=== PATIENT | female | born 1955 | race Caucasian/White ===

== ENCOUNTER 2019-05-15 20:03 | Emergency (ER) | payer OTHER, SELFPAY ==
[2019-05-15 20:07] VITALS: BP 165/90; PULSE 88; RESP 14; TEMP 37.6; O2SAT 99
--- NOTE | 2019-05-15 20:15 | DI.RAD.S_ITS ---
PROCEDURE: XR CHEST 2V INDICATIONS: from ED WR. cough and fever. TECHNIQUE: 2 views of the chest were acquired. COMPARISON: [facility], , CHEST 1 VIEW, 09/08/2016, 19:39. FINDINGS: Surgical changes and devices: None. Lungs and pleura: Retrocardiac alveolar opacity seen on the lateral view. No associated effusion. No pneumothorax. Mediastinum: Mediastinal contours are normal. Heart size is normal. Bones and chest wall: No suspicious bony abnormalities. Moderate thoracolumbar S-shaped scoliosis. Soft tissues appear unremarkable. IMPRESSION: Retrocardiac alveolar opacity best seen on the lateral view. This suggests a pneumonia. Dictated by: Mag العلي M.D. on 05/15/2019 at 21:26 Approved by: Mag العلي M.D. on 05/15/2019 at 21:27
[2019-05-15 20:55] LABS: Influenza A - CEPHEID Flu A NEGATIVE (NEGATIVE); Influenza B - CEPHEID Flu B NEGATIVE (NEGATIVE)
--- NOTE | 2019-05-15 21:48 | ED_ITS ---
HPI - URI/Sore Throat General Chief Complaint: Upper Respiratory Symptoms Stated Complaint: Cough, Blood Pressure up and down Time Seen by Provider: 05/15/19 20:57 Source: patient Mode of arrival: Ambulatory Limitations: no limitations History of Present Illness HPI Narrative: 63-year-old female nonsmoker with noncontributory medical history presents with her and a chief complaint of 8 days of gradually worsening cough, occasional sputum, fatigue and low-grade fever. She denies any nausea or vomiting nor any dysuria, frequency or urgency. She has no constipation or diarrhea. She denies any significant or profound shortness of breath. has similar symptoms MD Complaint: fever and cough Onset (ago): day(s) Duration: constant Severity: moderate Relieving factors: nothing Exacerbating factors: nothing Description of mucous: yellow Able to tolerate fluids by mouth: Yes Context: sick contacts Associated symptoms: fever and cough Treatments prior to arrival: none Related Data Previous Rx's Medication Instructions Recorded tramadol 50 mg PO Q6HP PRN #10 tab 09/08/16 amoxicillin-pot clavulanate 1 tab PO BID #20 tab 05/15/19 [Augmentin] Allergies Allergy/AdvReac Type Severity Reaction Status Date / Time No Known Drug Allergies Allergy Verified 05/15/19 20:15 Review of Systems Constitutional Constitutional: Denies chills, Denies fatigue, Reports fever(s), Denies frequent falls, Denies lethargy and Denies weakness Eyes Eyes: Denies change in vision, Denies eye discharge, Denies irritation and Denies loss of vision ENT Ears, Nose, Mouth, and Throat: Denies change in voice, Denies dizziness, Denies neck pain, Denies sore throat and Denies throat swelling Cardiovascular Cardiovascular: Denies chest pain, Denies irregular heart rhythm, Denies lightheadedness, Denies palpitations, Denies dyspnea, Denies dyspnea on exertion and Denies orthopnea Respiratory Respiratory: Reports cough, Reports excessive phlegm production, Denies dyspnea, Denies dyspnea on exertion and Denies wheezing Gastrointestinal Gastrointestinal: Denies abdominal pain, Denies change in bowel habits, Denies diarrhea, Denies nausea and Denies vomiting Genitourinary Genitourinary: Denies hematuria, Denies flank pain, Denies urinary incontinence and Denies urinary urgency Musculoskeletal Musculoskeletal: Denies back pain, Denies muscle weakness, Denies neck pain, Denies numbness and Denies tingling Integumentary/Breasts Skin/Breast: Denies pruritus, Denies erythema, Denies rash and Denies wounds Neurologic Neurologic: Denies behavioral changes, Denies confusion, Denies dizziness, Denies frequent falls, Denies loss of vision, Denies numbness, Denies tingling and Denies weakness Psychiatric Psychiatric: Denies anxiety, Denies behavioral changes, Denies confusion, Denies depression, Denies homicidal ideation and Denies suicidal ideation Endocrine Endocrine: Denies fatigue, Denies flushing and Denies palpitations Hematologic/Lymphatic Hematologic/Lymphatic: Denies easy bruising Allergic/Immunologic Allergic/Immunologic: Denies urticaria, Denies throat swelling and Denies wheezing Patient History Social History Smoking Status: Never smoker Smoking Status: Never smoker alcohol intake frequency: 0-2 drinks per day Substance Use Type: does not use Exam Narrative Exam Narrative: GENERAL: [63] year old patient appears stated age. Well- nourished, well-developed patient, in mild distress. HEAD: Atraumatic. Normocephalic. EYES: Pupils equal round and reactive. Extraocular motions intact. No scleral icterus. No injection or drainage. ENT: Nose without bleeding, purulent drainage. Throat without erythema, tonsilla r hypertrophy or exudate. Airway patent. NECK: Trachea midline. Non tender CARDIOVASCULAR: Regular rate and rhythm without murmurs, gallops, or rubs. RESPIRATORY: Clear to auscultation. Breath sounds equal bilaterally. No wheezes, rales, or rhonchi. GASTROINTESTINAL: Abdomen soft, non-tender, nondistended. EXTREMITIES: No edema or joint tenderness. BACK: Nontender without deformity or crepitance. No flank tenderness. NEURO: AOx3. SKIN: No rash or erythema of visible areas Initial Vital Signs Initial Vital Signs: Vital Signs Temperature 99.7 F H 05/15/19 20:07 Pulse Rate 88 05/15/19 20:07 Respiratory Rate 14 05/15/19 20:07 Blood Pressure 165/90 H 05/15/19 20:07 Pulse Oximetry 99 05/15/19 20:07 Course Orders Ordered: ED Orders 05/15/19 20:14 Influenza A & B (PCR) Stat 05/15/19 20:15 Chest [XR chest 2V] Stat Discontinued Medications Amoxicillin/Clavulanate Potassium (Augmentin 875-125 Mg) 1 tab PO NOW ONE Stop: 05/15/19 22:03 Last Admin: 05/15/19 22:07 Dose: 1 tab Documented by: DAMION Vital Signs Vital signs: Vital Signs - 8 hr 05/15/19 20:07 05/15/19 21:53 Temperature 99.7 F H 99.0 F Pulse Rate 88 65 Respiratory Rate 14 18 Blood Pressure 165/90 H Blood Pressure [Right Arm] 124/73 Pulse Oximetry 99 98 MDM - URI/Sore Throat Lab Data Labs: Lab Results 05/15/19 Range/Units 20:14 Influenza A (RT-PCR) Flu a negative (NEGATIVE) Influenza B (RT-PCR) Flu b negative (NEGATIVE) Imaging Data Chest x-ray: Radiologist's Impression: [address] [address] XRay Report Signed Patient: Leilani Garzon KMR#: [id number] : 5Acct:[id number] Age/Sex: 63 / FDate of Service: 05/15/19 Loc: ED Accession Number: [id number] Procedure: XR chest 2V Ordering Provider: Harjit Wynn D.O. PROCEDURE: XR CHEST 2V INDICATIONS: from ED WR. cough and fever. TECHNIQUE: 2 views of the chest were acquired. COMPARISON: [facility], , CHEST 1 VIEW, 09/08/2016, 19:39. FINDINGS: Surgical changes and devices: None. Lungs and pleura: Retrocardiac alveolar opacity seen on the lateral view. No associated effusion. No pneumothorax. Mediastinum: Mediastinal contours are normal. Heart size is normal. Bones and chest wall: No suspicious bony abnormalities. Moderate thoracolumbar S-shaped scoliosis. Soft tissues appear unremarkable. IMPRESSION: Retrocardiac alveolar opacity best seen on the lateral view. This suggests a pneumonia. Dictated by: Mag العلي M.D. on 05/15/2019 at 21:26 Approved by: Mag العلي M.D. on 05/15/2019 at 21:27 [facility] Narrative Medical decision making narrative: 63-year-old female nonsmoker with reassuring vital signs and physical exam has cough with some sputum and low-grade fever for 8 days. She is otherwise doing quite well. Pneumonia and flu considered most likely diagnoses given history and physical. Flu swab negative, chest x-ray no cellular retrocardiac infiltrate. Discharge Plan Departure Patient Disposition: Home Clinical Impression: Pneumonia Qualifiers: Pneumonia type: due to unspecified organism Laterality: unspecified laterality Lung location: unspecified part of lung Qualified Code(s): J18.9 - Pneumonia, unspecified organism Discharge Date/Time: 05/15/19 22:17 Instructions: DI for Pneumonia -- Adult Activity Restrictions/Additional Instructions: *You have been diagnosed with [acute community-acquired pneumonia] *What to do: *Take medications as directed *Follow up with your primary care provider in 2-3 days, call for an appointment. Let them know you were seen in the Emergency Department and that we ask that you be seen in follow up *Return to ER if you should have any new, worsening or concerning symptoms Prescriptions: New amoxicillin-pot clavulanate [Augmentin] 875-125 mg tablet 1 tab PO BID Qty: 20 RF: 0 No Action tramadol 50 MG tablet 50 mg PO Q6HP PRNQty: 10 RF: 0
[2019-05-15 21:53] VITALS: BP 124/73; PULSE 65; RESP 18; TEMP 37.2; O2SAT 98
[2019-05-15] MEDS: AMOXICILLIN/CLAV 875/125 MG 1 TAB PO (22:07)
== END 2019-05-15 22:17 | disposition home or self-care (01) ==
PROVIDERS: Emergency Provider Emergency Medicine
DX: J18.9 Pneumonia, unspecified organism (principal)
CPT/HCPCS: 71046; 87502; 99283

== ENCOUNTER 2020-10-30 20:37 | Emergency (ER) | payer MEDICARE, OTHER, SELFPAY ==
[2020-10-30 20:47] VITALS: BP 180/85; PULSE 54; RESP 18; TEMP 36.8; O2SAT 98; BMI 30.1
--- NOTE | 2020-10-30 21:04 | DI.RAD.S_ITS ---
PROCEDURE: XR CHEST 1V INDICATIONS: chest pain TECHNIQUE: One view of the chest was acquired. COMPARISON: [facility], CR, XR CHEST 2V, 05/15/2019, 20:24. FINDINGS: Surgical changes and devices: None. Lungs and pleura: Lungs are clear. No pleural effusions or pneumothorax. Mediastinum: Mediastinal contours appear normal. Heart size is normal. Bones and chest wall: Moderate lower thoracic dextroscoliosis due to left-sided degenerative disc height loss. No suspicious bony lesions. Overlying soft tissues appear unremarkable. IMPRESSION: No acute cardiopulmonary disease. Dictated by: Mag العلي M.D. on 10/30/2020 at 21:48 Approved by: Mag العلي M.D. on 10/30/2020 at 21:48
[2020-10-30 21:11] LABS: Add Manual Diff / Slide Review NO; Basophils Absolute Auto 100 /uL (0-100); Basophils Percent Auto 0.8 % (0-2); Eosinophils Absolute Auto 200 /uL (0-450); Eosinophils Percent Auto 2.8 % (2-4); Hematocrit 39.8 % (36-46); Hemoglobin 13.3 g/dL (12.0-16.0); Lymphocytes Absolute Auto 2100 /uL (1100-4500); Lymphocytes Percent Auto 30.5 % (25-40); Mean Corpuscular HGB Conc 33.3 % (30-36); Mean Corpuscular Hemoglobin 29.4 PG (26-34); Mean Corpuscular Volume 88.3 fL (80-100); Monocytes Absolute Auto 700 /uL (0-900); Monocytes Percent Auto 9.3 % (3-14); Neutrophils Absolute Auto 4000 /uL (1500-7000); Neutrophils Percent Auto 56.6 % (50-75); Platelet Count 222 X10^3/uL (150-400); Red Blood Cell Count 4.51 X10^6/uL (4.0-5.2); Red Cell Distribution Width 12.7 % (11.6-14.8)
[2020-10-30 21:20] LABS: Alanine Aminotransferase 25 IU/L (<35); Albumin 4.4 g/dL (3.5-5.0); Albumin Globulin Ratio 1.6 (1.0-2.8); Alkaline Phosphatase 58 U/L (38-126); Aspartate Aminotransferase 28 IU/L (14-36); BUN Creatinine Ratio 24.2 (6-22); Bilirubin Total 0.8 mg/dL (0.2-1.3); Blood Urea Nitrogen 15 mg/dL (7-17); Calcium 9.3 mg/dL (8.4-10.2); Carbon Dioxide 25 mmol/L (22-32); Chloride 105 mmol/L (98-107); Creatine Kinase 137 U/L (30-135); Estimated Glomerular Filt Rate > 60.0 mL/min (>60); Globulin 2.8 g/dL (1.7-4.1); Glucose 100 mg/dL (80-110); HEMOLYSIS 19 (0-50); Lipase 121 U/L (23-300); Sodium 138 mmol/L (137-145); Total Protein 7.2 g/dL (6.3-8.2)
[2020-10-30 21:32] LABS: Troponin I < 0.012 ng/mL (0.01-0.034)
[2020-10-30 21:36] LABS: CKMB % Relative Index 1.4 % (1.5-5.0); Creatine Kinase MB 1.98 ng/mL (<2.37)
[2020-10-30 21:40] LABS: COVID19 -Nasal RAPID Negative (Negative)
[2020-10-30 22:05] VITALS: BP 154/85; PULSE 59; RESP 16; O2SAT 98
--- NOTE | 2020-10-30 23:33 | ED.CHESTPAIN ---
HPI - Chest Pain General Chief Complaint: Chest Pain Stated Complaint: lt shoulder and chest pain Time Seen by Provider: 10/30/20 20:40 Source: patient Mode of arrival: Ambulatory Limitations: no limitations History of Present Illness HPI narrative: 65-year-old woman with no significant known medical history presents with central chest pain radiating through to her back it has been intermittently present for the last week worse with deep breathing and movement and not worsened with activity. She has tried some Tylenol and tramadol and has not found either of these particularly effective. She does note that she and her have both been helping some neighbors move in with much more physical activity lifting boxes and moving furniture etc.. She describes no dyspnea, nausea or diaphoresis when she does experience the pain. She complains of no abdominal pain, vomiting, diarrhea, fevers or palpitations. Related Data Previous Rx's Medication Instructions Recorded tramadol 50 mg tablet 50 mg PO Q6HP PRN #10 tab 09/08/16 amoxicillin 875 mg-potassium 1 tab PO BID #20 tab 05/15/19 clavulanate 125 mg tablet (Augmentin) Allergies Allergy/AdvReac Type Severity Reaction Status Date / Time No Known Drug Allergies Allergy Verified 10/30/20 20:47 Review of Systems Review of Systems Narrative: Remainder of complete review of systems is otherwise unremarkable except for that included in the HPI. Patient History Social History Smoking Status: Never smoker Smoking Status: Never smoker alcohol intake frequency: 0-2 drinks per day Substance Use Type: does not use Exam Narrative Exam Narrative: General: Healthy appearing, in no acute distress. Able to give a complete and coherent history. Well-nourished well-developed HEENT: Moist mucous membranes, normal sclera with reactive pupils, Neck: No JVD, supple Respiratory: Lungs are clear to auscultation, no wheezing no rales no rhonchi. Full and symmetrical air movement Chest: No skin rashes or abnormalities. She does have some tenderness along costochondral margins with palpation that does reproduce her pain Cardiac: Regular rate and rhythm no murmurs no bruits Abdomen: Soft, nontender, good bowel tones, no flank pain Skin: Warm and dry, no rashes Neurologic: Grossly neurologically intact with no obvious asymmetries or abnormalities Extremities: No trauma, well perfused Psych: Cooperative, appropriate insight and affect Initial Vital Signs Initial Vital Signs: Vital Signs Temperature 98.2 F 10/30/20 20:47 Pulse Rate 54 L 10/30/20 20:47 Respiratory Rate 18 10/30/20 20:47 Blood Pressure 180/85 H 10/30/20 20:47 Pulse Oximetry 98 10/30/20 20:47 Course Orders Ordered: Discontinued Medications Ketorolac Tromethamine (Ketorolac 30 Mg/Ml Vial) 15 mg IV NOW ONE Stop: 10/30/20 23:42 Last Admin: 10/30/20 23:49 Dose: 15 mg Documented by: IZZY Vital Signs Vital signs: Vital Signs - 8 hr 10/30/20 20:47 Temperature 98.2 F Pulse Rate 54 L Respiratory Rate 18 Blood Pressure 180/85 H Pulse Oximetry 98 MDM - Chest Pain Lab Data Result diagrams: 10/30/20 20:55 10/30/20 20:55 Labs: Lab Results 10/30/20 10/30/20 10/30/20 Range/Units 20:55 20:55 20:58 WBC 7.0 (4.5-11.0) X10^3/uL RBC 4.51 (4.0-5.2) X10^6/uL Hgb 13.3 (12.0-16.0) g/dL Hct 39.8 (36-46) % MCV 88.3 (80-100) fL MCH 29.4 (26-34) PG MCHC 33.3 (30-36) % RDW 12.7 (11.6-14.8) % Plt Count 222 (150-400) X10^3/uL Neut % (Auto) 56.6 (50-75) % Lymph % (Auto) 30.5 (25-40) % [place] % (Auto) 9.3 (3-14) % Eos % (Auto) 2.8 (2-4) % Baso % (Auto) 0.8 (0-2) % Neut # (Auto) 4000 (4692-4322) /uL Lymph # (Auto) 2100 (9358-4727) /uL [place] # (Auto) 700 (0-900) /uL Eos # (Auto) 200 (0-450) /uL Baso # (Auto) 100 (0-100) /uL Sodium 138 (137-145) mmol/L Potassium 4.0 (3.4-5.1) mmol/L Chloride 105 (98-107) mmol/L Carbon Dioxide 25 (22-32) mmol/L BUN 15 (7-17) mg/dL Creatinine 0.62 (0.52-1.04) mg/dL Estimated GFR > 60.0 (>60) mL/min BUN/Creatinine Ratio 24.2 H (6-22) Glucose 100 (80-110) mg/dL Calcium 9.3 (8.4-10.2) mg/dL Total Bilirubin 0.8 (0.2-1.3) mg/dL AST 28 (14-36) IU/L ALT 25 (<35) IU/L Alkaline Phosphatase 58 (38-126) U/L Total Creatine Kinase 137 H (30-135) U/L CK-MB (CK-2) 1.98 (<2.37) ng/mL CK-MB (CK-2) Rel Index 1.4 L (1.5-5.0) % Troponin I < 0.012 (0.01-0.034) ng/mL Total Protein 7.2 (6.3-8.2) g/dL Albumin 4.4 (3.5-5.0) g/dL Globulin 2.8 (1.7-4.1) g/dL Albumin/Globulin Ratio 1.6 (1.0-2.8) Lipase 121 (23-300) U/L SARS-CoV-2 (PCR) Negative (Negative) Imaging Data Chest x-ray: Radiologist's Impression: FINDINGS: Surgical changes and devices: None. Lungs and pleura: Lungs are clear. No pleural effusions or pneumothorax. Mediastinum: Mediastinal contours appear normal. Heart size is normal. Bones and chest wall: Moderate lower thoracic dextroscoliosis due to left-sided degenerative disc height loss. No suspicious bony lesions. Overlying soft tissues appear unremarkable. IMPRESSION: No acute cardiopulmonary disease. Dictated by: Mag العلي M.D. on 10/30/2020 at 21:48 ECG Data Interpretation: Sinus bradycardia at a rate of 55 Left axis deviation, incomplete right bundle branch block No acute ischemic changes MDM Narrative Medical decision making narrative: 65-year-old woman with 1 week of intermittent chest pain. Tenderness with palpation of, along the costochondral margins and negative workup for acute coronary syndrome. Significantly improved with IV Toradol. At this time I do not suspect acute coronary syndrome, pneumothorax, shingles, gastric ulcer, pancreatitis or gallbladder disease. Reassurance is given and she is safe for discharge home Discharge Plan Departure Patient Disposition: Home Clinical Impression: Costalchondritis Instructions: DI for Costochondritis Activity Restrictions/Additional Instructions: Thank you for coming in this evening Your workup was very reassuring. There is no evidence of a heart attack, pneumonia, collapsed lung or broken ribs. With the increased activity that you had and the pain reproducible on your physical exam, I suspect that you have costochondritis. Ibuprofen or Aleve are the most appropriate [id number] medications to help treat this pain. It should resolve by itself within the next week or so. If you have new or worsening symptoms, please feel free to return to the emergency department I hope you feel better Prescriptions: No Action tramadol 50 MG tablet 50 mg PO Q6HP PRNQty: 10 RF: 0 amoxicillin-pot clavulanate [Augmentin] 875-125 mg tablet 1 tab PO BID Qty: 20 RF: 0
[2020-10-30 23:48] VITALS: BP 178/84; PULSE 56; RESP 18; O2SAT 98
[2020-10-30] MEDS: KETOROLAC 30 MG/ML VIAL 15 MG IV (23:49)
== END 2020-10-30 23:58 | disposition home or self-care (01) ==
PROVIDERS: Emergency Provider Emergency Medicine
DX: M94.0 Chondrocostal junction syndrome [Tietze] (principal); Z20.822 Contact with and (suspected) exposure to COVID-19
CPT/HCPCS: 36415; 71045; 80053; 82550; 82553; 83690; 84484; 85025; 87635; 93005; 96374; 99284; C9803; J1885

== ENCOUNTER → 2022-03-11 06:48 | Outpatient (CLI) | payer MEDICARE, OTHER, SELFPAY ==
--- NOTE | 2022-03-11 | DI.ECHO.S_ITS ---
[facility] +---------+ : : [address] : : : : [id number] : : : : Phone: [phone]---------+ Echocardiogram Report + + :Name: MAURICE DELONG Study Date: 03/11/2022 Height: 63 in : :[facility] ReadingLocation: Weight: 171 lb : : Gender: Female BSA: 1.8 m2 : :: 1955 Age: 66 yrs BP: 158/79 mmHg: :Reason For Study: Palpitations : :Ordering Physician: ISHMAEL, : :MAXWELL Performed By: Giovanny Pena : :Referring: MAXWELL QUIÑONES : + + Interpretation Summary The ejection fraction is estimated to be 60-65%. Grade II diastolic dysfunction. The right ventricle is normal in size and function. The right ventricular systolic pressure is estimated to be at least 27 mmHg based on an estimated right atrial pressure of 3 mm Hg. No significant valvular disease. Procedure: A two-dimensional transthoracic echocardiogram with color flow and Doppler was performed. The study quality was technically adequate. There is no prior echocardiogram noted for this patient. The patient was in normal sinus rhythm during the exam. Left Ventricle: The left ventricle is normal in size and wall thickness. Left ventricular systolic function is normal. The ejection fraction is estimated to be 60-65%. There are no focal wall motion abnormalities. Grade II diastolic dysfunction. Right Ventricle: The right ventricle is normal in size and function. Atria: The left atrium is mildly dilated. Right atrial size is normal. The interatrial septum grossly appears intact with no obvious evidence for an atrial septal defect. Mitral Valve: There is mild mitral annular calcification. There is trace mitral regurgitation. Aortic Valve: The aortic valve is mildly calcified. There is no hemodynamically significant valvular aortic stenosis. No aortic regurgitation is present. Tricuspid Valve: The tricuspid valve is normal in structure and function. There is mild tricuspid regurgitation. The right ventricular systolic pressure is estimated to be at least 27 mmHg based on an estimated right atrial pressure of 3 mm Hg. Pulmonic Valve: The pulmonic valve is normal in structure and function. There is trace pulmonic regurgitation. Great Vessels: The aortic root is normal size. The dimensions of the ascending aorta are normal. The IVC is of normal diameter and collapses greater than 50% with a sniff. This suggests a low right atrial pressure of 3 mm Hg. Pericardium/ Pleura There is no pericardial effusion. There is no pleural effusion. MMode/2D Measurements & Calculations LVIDd: 4.6 cm LVOT diam: 2.1 cm LVIDs: 3.0 cm Ao root diam: 3.0 cm FS: 36.3 % asc Aorta Diam: 3.5 cm IVSd: 0.80 cm LVPWd: 0.84 cm LV patel. diameter/BSA (cm/m^2): 2.6 LV sys. diameter/BSA (cm/m^2): 1.6 LA A2 area: 21.4 cm2 RA long axis: 5.0 cm LA A4 area: 21.0 cm2 RA area: 13.5 cm2 LA length (vol): 5.7 cm RA vol: 30.9 ml LA vol: 66.9 ml RA : 17.1 ml/m2 LA vol index: 37.0 ml/m2 TAPSE: 3.4 cm Doppler Measurements & Calculations Ao V2 max: 231.8 cm/sec LVOT Max Som: 125.5 cm/sec Ao V2 mean: 151.2 cm/sec LV V1 max P.3 mmHg Ao max P.5 mmHg LV V1 VTI: 29.9 cm Ao mean P.5 mmHg KENN(I,D): 2.1 cm2 Ao V2 VTI: 48.0 cm KENN(V,D): 1.8 cm2 sev ratio: 0.62 KENN indexed to BSA (cm^2/m^2): 1.1 MV E max som: 90.6 cm/sec TR max som: 242.7 cm/sec MV A max osm: 99.1 cm/sec TR max P.6 mmHg MV E/A: 0.91 Med Peak E' Som: 4.7 cm/sec E/E' med: 19.2 Lat Peak E' Som: 6.2 cm/sec E/E' lat: 14.6 E/e' average: 16.9 MV dec time: 0.32 sec SV(LVOT): 99.2 ml Reading Physician:JANELLE
== END ==
PROVIDERS: PCP Student in an Organized Health Care Education/Training Program; Referring Provider Student in an Organized Health Care Education/Training Program; Visit Provider Student in an Organized Health Care Education/Training Program
DX: R00.2 Palpitations (principal); I08.1 Rheumatic disorders of both mitral and tricuspid valves
CPT/HCPCS: 93306

== ENCOUNTER → 2023-02-23 08:28 | Outpatient (CLI) | payer MEDICARE, OTHER, SELFPAY ==
--- NOTE | 2023-02-23 | DI.ECHO.S_ITS ---
[facility]---------+ [facility] +---------+ : : [address] : : : : [id number] : : : : Phone: [phone] +---------+ Echocardiogram Report + + :Name: MAURICE DELONG Study Date: 02/23/2023 Height: 62 in : :[facility] ReadingLocation: Weight: 170 lb : : Gender: Female BSA: 1.8 m2 : :: 1955 Age: 67 yrs BP: 172/86 mmHg: :Reason For Study: CHEST PAIN : :Ordering Physician: ALBER, : :JAMAL Performed By: Kika Mcdonald : :Referring: JAMAL RAYA : + + Interpretation Summary 1) Normal left ventricular thickness, size, wall motion, and systolic function (EF 60-65%). 2) Normal right ventricular size and function. 3) No significant valvular abnormalities. 4) Hypertension present during the study (BP 172/86mmHg). 5) Compared to the Echo done , no significant change. Procedure: A two-dimensional transthoracic echocardiogram with color flow and Doppler was performed. The study quality was technically adequate. Comparison is made with the echocardiogram of 03/11/2022. The patient was in sinus rhythm with heart rates between 53-68 bpm during the exam. The patient had occasional PVCs during the exam. Left Ventricle: The left ventricle is normal in size and wall thickness. The ejection fraction is estimated to be 55-60%. Left ventricular systolic function appears normal without focal wall motion abnormalities. Diastolic parameters suggest a pseudonormalization pattern, consistent with probable elevated filling pressures. Right Ventricle: The right ventricle is normal in size and function. Atria: The left atrium is moderately dilated. The right atrium is normal in size. There is no Doppler evidence for an interatrial shunt. Mitral Valve: The mitral valve leaflets are mildly calcified. There is mild mitral annular calcification. The mitral valve mean gradient is 1.4 mmHg. There is trace mitral regurgitation. Aortic Valve: The aortic valve is trileaflet. The aortic valve is slightly calcified. The peak aortic velocity is 2.2 m/sec. The aortic valve mean gradient is 9 mmHg. There is no aortic valve stenosis. No aortic regurgitation is present. Tricuspid Valve: The tricuspid valve is normal in structure and function. There is mild tricuspid regurgitation. The right ventricular systolic pressure is estimated to be at least 26 mmHg based on an estimated right atrial pressure of 3 mm Hg. Pulmonic Valve: The pulmonic valve leaflets are thin and pliable; valve motion is normal. There is no pulmonic valvular regurgitation. Great Vessels: The aortic root is normal size. The dimensions of the ascending aorta are normal. The IVC is of normal diameter and collapses greater than 50% with a sniff. This suggests a low right atrial pressure of 3 mm Hg. Pericardium/ Pleura There is no pericardial effusion. There is no pleural effusion. MMode/2D Measurements & Calculations LVIDd: 4.5 cm LVOT diam: 2.2 cm LVIDs: 2.8 cm Ao root diam: 3.1 cm FS: 37.1 % asc Aorta Diam: 3.7 cm IVSd: 0.73 cm Ao Arch Diam (Prox Trans): 3.0 cm LVPWd: 0.89 cm LV patel. diameter/BSA (cm/m^2): 2.5 LV sys. diameter/BSA (cm/m^2): 1.6 LA A2 area: 24.6 cm2 RA long axis: 5.5 cm LA A4 area: 21.5 cm2 RA area: 15.5 cm2 LA length (vol): 5.6 cm RA vol: 37.1 ml LA vol: 79.9 ml RA : 20.8 ml/m2 LA vol index: 44.8 ml/m2 IVC diam: 1.2 cm RVD1 (basal): 3.7 cm TAPSE: 2.4 cm Doppler Measurements & Calculations Ao V2 max: 220.0 cm/sec LVOT Max Som: 110.1 cm/sec Ao V2 mean: 143.0 cm/sec LV V1 max P.9 mmHg Ao max P.4 mmHg LV V1 VTI: 30.2 cm Ao mean P.4 mmHg KENN(I,D): 2.2 cm2 Ao V2 VTI: 53.3 cm KENN(V,D): 1.9 cm2 sev ratio: 0.57 KENN indexed to BSA (cm^2/m^2): 1.2 MV E max som: 88.5 cm/sec TR max som: 238.3 cm/sec MV A max som: 104.9 cm/sec TR max P.7 mmHg MV E/A: 0.84 PA V2 max: 93.9 cm/sec Med Peak E' Som: 5.2 cm/sec PA V2 mean: 62.4 cm/sec E/E' med: 17.1 PA mean P.8 mmHg Lat Peak E' Som: 5.6 cm/sec PA pr(Accel): 34.5 mmHg E/E' lat: 15.7 E/e' average: 16.4 MV dec time: 0.37 sec MVA(VTI): 3.3 cm2 MV V2 mean: 56.4 cm/sec SV(LVOT): 116.2 ml MV mean P.4 mmHg MV V2 VTI: 34.8 cm Reading Physician:11:32 AM
--- NOTE | 2023-02-23 | DI.NM.S_ITS ---
PROCEDURE: NM CAYLA PERF SPECT R&S PHARM Rest and pharmacological stress myocardial perfusion SPECT with gated imaging and ejection fraction RADIOPHARMACEUTICAL: 10.7 mCi Tc-99m tetrafosmin IV at rest and 24.9 mCi Tc-99m tetrafosmin IV at peak effect of pharmacological stress. A 0-lln-vtaljzxe was performed. INDICATIONS: Chest pain, unspecified TECHNIQUE: Radiopharmaceutical was injected at peak stress test, and also at rest. SPECT images were obtained. SPECT myocardial perfusion images were displayed in short axis, horizontal long axis, and vertical long axis views. Gated images were reviewed using [id number] software. COMPARISON: None. CARDIAC STRESS: A pharmacologic stress test was performed under the supervision of an attending staff, using an infusion of regadenoson 0.4 mg IV. Hemodynamic data: There is normal blood pressure and heart rate response to pharmacologic stress. Symptoms: The patient denied anginal chest pain. EKG: No diagnostic changes of ischemia; no ectopy. FINDINGS: Raw data: There is good myocardial uptake of radiotracer. No significant motion artifacts. Hicl-rq-vymup ratio is 0.4 (normal is less than 0.38 for tetrafosmin tracer). Left ventricle function: Gated images demonstrate normal left ventricular wall thickening. No segmental wall motion abnormalities. No transient ischemic dilation; TID is 1.0 (normal less than 1.3). Left ventricle resting end diastolic volume is 81 mL. Left ventricle stress ejection fraction is >75%; normal range is above 45%. Myocardial perfusion: There is normal distribution of activity in the right and left ventricular myocardium. No fixed or reversible perfusion defects. IMPRESSION: Low risk study. No evidence of pharmacologic induced ischemia or scar. Normal LV size with hyperdynamic function. Dictated by: Elisabeth Dowell D.O. on 02/23/2023 at 17:14 Approved by: Elisabeth Dowell D.O. on 02/23/2023 at 17:16
== END ==
PROVIDERS: Referring Provider Internal Medicine Cardiovascular Disease; Visit Provider Internal Medicine Cardiovascular Disease
DX: I08.1 Rheumatic disorders of both mitral and tricuspid valves (principal); R07.9 Chest pain, unspecified
CPT/HCPCS: 78452; 93017; 93306; A9502; J2785

== ENCOUNTER → 2023-05-17 10:47 | Outpatient (CLI) | payer MEDICARE, OTHER, SELFPAY ==
--- NOTE | 2023-05-17 | DI.RAD.S_ITS ---
Bone Density Report Name: MAURICE DELONG Age: 67 Sex: Female Ethnicity: White Date of : 1955 Indication: postmenopausal; screening for osteoporosis; Referring Provider: RUDY GARCIA Study: Bone densitometry was performed. Exam Date: May 17, 2023 Accession number: [id number] Bone Density: Region BMD T-score Z-score Classification AP Spine(L1, L2, L3) 1.159 1.3 3.2 Normal Femoral Neck (Left) 0.621 -2.1 -0.3 Osteopenia Total Hip (Left) 0.782 -1.3 0.1 Osteopenia Femoral Neck (Right) 0.784 -0.6 1.1 Normal Total Hip (Right) 0.896 -0.4 1.0 Normal Total Hip Mean 0.839 -0.9 0.6 Normal World Health Organization criteria for BMD impression classify patients as: Normal (T-score at or above -1.0), Osteopenia (T-score between -1.0 and -2.5), or Osteoporosis (T-score at or below -2.5). 10-year Fracture Risk(1): Major Osteoporotic Fracture 11% Hip Fracture 2.0% Reported Risk Factors: [place] (), Neck BMD=0.621, BMI=31.5 (1) FRAX(R) Version 3.08. Fracture probability calculated for an untreated patient. Fracture probability may be lower if the patient has received treatment. Impression: The patient has low bone mass, based on the Left Femoral Neck T-score. The patient has an estimated ten-year risk of hip fracture of 2% and an estimated ten-year risk of major fracture of 11%, based on the WHO FRAX algorithm. Discussion: BONE DENSITY IS LOW AT ONE OR MORE SKELETAL SITES. This patient's lowest T-score is low at one or more skeletal sites. It meets the World Health Organization's (WHO) criteria for low bone mass (T-score between -1.0 and -2.5). The patient's 10-year risk of fracture as calculated by FRAX is less than the threshold where pharmacological therapy is recommended by the National Osteoporosis Foundation (NOF). However, all treatment decisions require clinical judgment and consideration of individual patient factors, including patient preferences, comorbidities, previous drug use, risk factors not captured in the FRAX model (e.g., frailty, falls, vitamin D deficiency, increased bone turnover, interval significant decline in bone density) and possible under or overestimation of fracture risk by FRAX. The patient should follow a healthful lifestyle (good nutrition with adequate calcium and vitamin D, and appropriate weight-bearing exercise). Follow-Up: Consider repeating this study in 2 to 3 years to reassess this patient's status, or sooner if there is some new clinical indication. Reported by: NITZA RAMACHANDRAN M.D. on 05/17/2023 11:22:00 AM.
== END ==
LOC: RAD 10:48
PROVIDERS: Referring Provider Nurse Practitioner Family; Visit Provider Nurse Practitioner Family
DX: M85.852 Other specified disorders of bone density and structure, left thigh (principal); Z78.0 Asymptomatic menopausal state
CPT/HCPCS: 77080

== ENCOUNTER 2023-09-06 07:45 | Day surgery (SDC) | payer MEDICARE, OTHER, SELFPAY ==
[2023-09-06] MEDS: LACTATED RINGERS 1,000 ML 42 ML IV (08:24)
[2023-09-06 08:30] VITALS: BP 145/79; PULSE 66; RESP 18; TEMP 36.4; O2SAT 100
--- NOTE | 2023-09-06 09:28 | P.HP_ITS ---
History of Present Illness History of Present Illness Date Patient Seen: 09/06/23 Time Patient Seen: 09:28 Chief complaint: SDC Narrative: 67-year-old woman here for screening colonoscopy. Last colonoscopy 10 years ago normal. No family history of intestinal malignancy in first-degree relatives. No abdominal concerns today. [facility] Social History Smoking Status: Never smoker alcohol intake: never Meds Home Medications and Allergies Home Medications Medication Instructions Recorded Confirmed Type sodium,potassium,mag sulfates 17.5 See Rx Instructions PO .COMPLEX 08/12/2307/26 Rx gram-3.13 gram-1.6 gram oral soln #354 mL (Suprep Bowel Prep Kit) fluticasone propionate 50 1 spray intranasal BID 09/05/23 09/06/23 History mcg/actuation nasal spray,suspension omeprazole 20 mg capsule,delayed 20 mg PO BID 09/05/23 09/06/23 History release simvastatin 20 mg tablet 20 mg PO ONCE PM 09/05/23 09/06/23 History valacyclovir 1 gram tablet 4,000 mg PO DIRECTED 09/05/23 09/06/23 History telmisartan 20 mg tablet (Micardis) 20 mg PO DAILY 09/06/23 09/06/23 History Allergies Allergy/AdvReac Type Severity Reaction Status Date / Time No Known Drug Allergies Allergy Verified 09/06/23 08:40 Exam Vital Signs (past 8 hours): - 09/06/23 08:30 Temperature 97.5 F L Pulse Rate 66 Respiratory Rate 18 Blood Pressure 145/79 H Pulse Oximetry 100 Oxygen Delivery Method Room Air Oxygen Delivery Method Room Air Narrative Exam Narrative: General adult woman alert oriented no acute distress Chest nonlabored respiration Extremities warm well perfused Assessment & Plan Assessment & Plan narrative: The patient requires colorectal screening and colonoscopy is recommended. Technical details were discussed. Risks, benefits, alternatives explained. Risks including but not limited to myocardial infarction, aspiration, bleeding, pain, missed lesion, incomplete examination, need for further radiographic studies, intestinal injury, and need for major abdominal surgery were discussed. All questions were answered to their satisfaction, and they are in agreement with this plan.
[2023-09-06 09:53] VITALS: BP 119/71; PULSE 67; RESP 16; TEMP 36.4; O2SAT 98
[2023-09-06 09:58] VITALS: BP 130/83; PULSE 79; RESP 18; O2SAT 99
--- NOTE | 2023-09-06 09:58 | P.OP.COLON_ITS ---
Operative Date/Time/Diagnoses Date of procedure: 09/06/23 Time of procedure: 09:58 Pre-op diagnosis: Colorectal screening Procedure & Clinicians Study performed: Screening colonoscopy Same procedure as scheduled: Yes Indications: Colorectal screening Surgeon: Laz Jerez Procedure Notes Procedure in detail: The history and physical was performed/updated and the patient is ASA class is 2. The procedure was discussed in detail with the patient. Potential risks co mplications including infection, bleeding, missed diagnosis, perforation, need for surgery, and were explained. Their questions were answered and informed consent was obtained. Patient was brought to the procedure room and placed standard monitoring equipment. The patient's vital signs were monitored continuously throughout the entire procedure. Prior to starting time-out was performed. The patient was placed in the left lateral recumbent position. Procedural sedation was administered by anesthesia. Examination began with a thorough inspection of the perianal area there was no evidence of fissures, fistulae, external hemorrhoids or cutaneous malignancy. The colonoscopy scope was then placed into the anal canal and was advanced to the cecum, which was identified by the ileocecal valve, the appendiceal orifice and the confluence of the taenia. The scope was then slowly withdrawn examining colon thoroughly in all directions, irrigating it of any residual stool. The scope was retroflexed within the rectum The patient tolerated the procedure well. They will be discharged once criteria are met. The prep was of good/excellent quality. The withdrawl time was 7 minutes. FINDINGS * Unremarkable colonoscopy. Normal healthy colonic mucosa without masses or polyps. * Internal hemorrhoids Specimen(s): none sent Impression: Normal colonoscopy Post-procedure Plan for aftercare: No need for further colonoscopy unless symptomatic. Disposition: same day surgery
[2023-09-06 10:03] VITALS: BP 132/78; PULSE 78; RESP 15; TEMP 36.4; O2SAT 98
== END 2023-09-06 10:18 | disposition home or self-care (01) ==
PROVIDERS: Referring Provider Surgery; Visit Provider Surgery
PROC: 0DJD8ZZ Inspection of Lower Intestinal Tract, Via Natural or Artificial Opening Endoscopic (ICD-10-PCS; CPT 45378; principal; 2023-09-06 09:15)
DX: Z12.11 Encounter for screening for malignant neoplasm of colon (principal); K64.8 Other hemorrhoids
CPT/HCPCS: G0121

== ENCOUNTER 2025-01-27 18:07 | Emergency (ER) | payer MEDICARE, OTHER, SELFPAY ==
[2025-01-27] VITALS (8 sets, daily range): BP systolic 132–154; BP diastolic 65–80; PULSE 78–83; RESP 15–23; TEMP 36.4; O2SAT 93–100; BMI 30.5
--- NOTE | 2025-01-27 18:37 | EKG_ITS ---
[facility] [address] [place] [address] Test Date: 2025-01-27 Pat Name: Leilani Garzon Department: [facility] Room: Gender: Female [employer]: KEM DALY : 1955 Requested By: Order Number: [id number] Reading MD: Edd Robles MD Measurements Intervals Apex Rate: 89 P: 31 NC: 128 QRS: -64 QRSD: 134 T: 46 QT: 406 QTc: 493 Interpretive Statements Normal sinus rhythm Right bundle branch block Left anterior fascicular block Bifascicular block Minimal voltage criteria for LVH, may be normal variant ( R in aVL ) Septal infarct , age undetermined Possible Lateral infarct , age undetermined Electronically Signed On 02-10-2025 8:56:52 PST by Edd Robles MD
--- NOTE | 2025-01-27 18:37 | DI.RAD.S_ITS ---
PROCEDURE: XR CHEST 1V INDICATIONS: Chest Pain TECHNIQUE: One view of the chest was acquired. COMPARISON: [facility], CR, XR CHEST 1V, 10/30/2020, 21:12. FINDINGS: Surgical changes and devices: None. Lungs and pleura: An incomplete inspiratory result is noted, causing a crowded appearance to the lung markings. No focal infiltrates are seen. No pneumothorax or significant pleural effusions are seen. Mediastinum: Mediastinal contours appear normal. Heart size is normal. Bones and chest wall: No suspicious bony lesions. Age-appropriate bony degenerative changes are seen. Mild dextroconvex scoliotic curvature is seen. Overlying soft tissues appear unremarkable. IMPRESSION: Low lung volumes, without an acute abnormality seen by plain film. Dictated by: Eric Barrow M.D. on 01/27/2025 at 18:02 Approved by: Eric Barrow M.D. on 01/27/2025 at 18:02
[2025-01-27 18:46] LABS: Add Manual Diff / Slide Review NO; Hematocrit 43.4 % (36-46); Hemoglobin 14.7 g/dL (12.0-16.0); INR 1.0 (0.9-1.3); Lymphocytes Absolute Auto 800 /uL (1100-4500); Mean Corpuscular HGB Conc 33.8 % (30-36); Mean Corpuscular Hemoglobin 30.4 PG (26-34); Mean Corpuscular Volume 89.8 fL (80-100); Platelet Count 318 X10^3/uL (150-400); Prothrombin Time 11.2 SECONDS (9.4-12.5)
[2025-01-27 18:49] LABS: PTT Partial Thromboplastin Tim 32 SECONDS (25.1-36.5)
[2025-01-27 18:50] LABS: Alanine Aminotransferase 29 IU/L (<35); Albumin 4.9 g/dL (3.5-5.0); Albumin Globulin Ratio 1.6 (1.0-2.8); Alkaline Phosphatase 81 U/L (38-126); Blood Urea Nitrogen 13 mg/dL (7-17); Calcium 9.2 mg/dL (8.4-10.2); Carbon Dioxide 21 mmol/L (22-32); Chloride 102 mmol/L (98-107); Creatine Kinase 102 U/L (30-135); Estimated Glomerular Filt Rate > 60 mL/min (>60); Globulin 3.1 g/dL (1.7-4.1); Glucose 138 mg/dL (70-99); HEMOLYSIS 17 (0-50); Lipase 76 U/L (23-300); Magnesium 1.7 mg/dL (1.6-2.3); Potassium 3.8 mmol/L (3.4-5.1); Sodium 136 mmol/L (137-145); Total Protein 8.0 g/dL (6.3-8.2)
[2025-01-27 19:01] LABS: NT-proBNP (BNP-Adult 18+) 225 pg/mL (<125); Troponin I < 0.012 ng/mL (0.01-0.034)
--- NOTE | 2025-01-27 19:22 | ED.SYNCOPE ---
HPI - Syncope General Chief Complaint: Syncope Stated Complaint: IBS/ syncope Time Seen by Provider: 01/27/25 18:15 Source: patient and EMS Mode of arrival: EMS Limitations: no limitations History of Present Illness HPI narrative: [age] year old female with a history of vasovagal syncope and anxiety related presyncopal feeling presents with several bouts of diarrhea earlier this evening and then something backwards with some chills and having a brief few minute moment of less responsiveness. She denies any seizure activity or prodromal symptoms. She had no postictal state. She claims she could hear her but her says that she was less responsive. Currently the patient is right back to her baseline. Related Data Home Medications ?Medication ?Instructions ?Recorded ?Confirmed fluticasone propionate 50 1 spray intranasal BID 09/05/23 09/06/23 mcg/actuation nasal spray,suspension omeprazole 20 mg capsule,delayed 20 mg PO BID 09/05/23 09/06/23 release simvastatin 20 mg tablet 20 mg PO ONCE PM 09/05/23 09/06/23 valacyclovir 1 gram tablet 4,000 mg PO DIRECTED 09/05/23 09/06/23 telmisartan 20 mg tablet (Micardis) 20 mg PO DAILY 09/06/23 09/06/23 Allergies Allergy/AdvReac Type Severity Reaction Status Date / Time No Known Drug Allergies Allergy Verified 01/27/25 18:31 Patient History Social History alcohol intake: never alcohol intake frequency: 0-2 drinks per day Exam Initial Vital Signs Initial Vital Signs: Vital Signs Pulse Rate 82 01/27/25 18:19 Pulse Oximetry 93 01/27/25 18:19 Course Orders Ordered: ED Orders 01/27/25 18:25 Complete Blood Count AUTO DIFF Stat Comprehensive Metabolic Panel Stat Lipase Stat Magnesium Stat NT-proBNP (BNP-Adult 18+) Stat PTT Partial Thromboplastin Job Stat Prothrombin Time INR Stat Troponin & CK Cardiac Panel Stat 01/27/25 18:37 XR chest 1V Stat EKG-12 Lead Stat Discontinued Medications Aspirin (Aspirin 81 Mg Chew Tab) 324 mg PO NOW ONE Stop: 01/27/25 18:38 Vital Signs Vital signs: Vital Signs - 8 hr 01/27/25 19:00 01/27/25 19:00 01/27/25 19:30 Pulse Rate 82 79 Respiratory Rate 23 15 Blood Pressure 141/68 H Pulse Oximetry 96 100 Oxygen Delivery Method Room Air 01/27/25 19:31 01/27/25 19:31 01/27/25 20:00 Pulse Rate 80 Respiratory Rate 17 Blood Pressure 154/67 H 149/73 H Pulse Oximetry 99 Oxygen Delivery Method 01/27/25 20:00 01/27/25 20:30 01/27/25 20:30 Pulse Rate 79 79 Respiratory Rate 20 17 Blood Pressure 153/73 H Pulse Oximetry 98 98 Oxygen Delivery Method Room Air Room Air MDM - Syncope Lab Data 01/27/25 18:25 01/27/25 18:25 Labs: Lab Results 01/27/25 Range/Units 18:25 WBC 9.9 (4.5-11.0) X10^3/uL RBC 4.83 (4.0-5.2) X10^6/uL Hgb 14.7 (12.0-16.0) g/dL Hct 43.4 (36-46) % MCV 89.8 (80-100) fL MCH 30.4 (26-34) PG MCHC 33.8 (30-36) % RDW 13.5 (11.6-14.8) % Plt Count 318 (150-400) X10^3/uL Neut % (Auto) 87.6 H (50-75) % Lymph % (Auto) 8.5 L (25-40) % Bath % (Auto) 3.3 (3-14) % Eos % (Auto) 0.3 L (2-4) % Baso % (Auto) 0.3 (0-2) % Neut # (Auto) 8700 H (3778-9199) /uL Lymph # (Auto) 800 L (1293-1474) /uL Bath # (Auto) 300 (0-900) /uL Eos # (Auto) 0 (0-450) /uL Baso # (Auto) 0 (0-100) /uL PT 11.2 (9.4-12.5) SECONDS INR 1.0 (0.9-1.3) APTT 32 (25.1-36.5) SECONDS Sodium 136 L (137-145) mmol/L Potassium 3.8 (3.4-5.1) mmol/L Chloride 102 (98-107) mmol/L Carbon Dioxide 21 L (22-32) mmol/L BUN 13 (7-17) mg/dL Creatinine 0.90 (0.52-1.04) mg/dL Estimated GFR > 60 (>60) mL/min BUN/Creatinine Ratio 14.4 (6-22) Glucose 138 H (70-99) mg/dL Calcium 9.2 (8.4-10.2) mg/dL Magnesium 1.7 (1.6-2.3) mg/dL Total Bilirubin 0.8 (0.2-1.3) mg/dL AST 34 (14-36) IU/L ALT 29 (<35) IU/L Alkaline Phosphatase 81 (38-126) U/L Total Creatine Kinase 102 (30-135) U/L Troponin I < 0.012 (0.01-0.034) ng/mL NT-Pro-B Natriuret Pep 225 H (<125) pg/mL Total Protein 8.0 (6.3-8.2) g/dL Albumin 4.9 (3.5-5.0) g/dL Globulin 3.1 (1.7-4.1) g/dL Albumin/Globulin Ratio 1.6 (1.0-2.8) Lipase 76 (23-300) U/L ECG Data Interpretation: EKG shows a normal sinus rhythm, right bundle branch block, left anterior fascicular block, normal MO intervals, no STT wave changes. 89 beats per minute. previous ekg showed following: SINUS BRADYCARDIA MARKED RIGHT AXIS DEVIATION [QRS AXIS > 100] PROBABLE INFERIOR MYOCARDIAL INFARCTION [35 ms Q WAVE IN II/aVF], PROBABLY OLD MDM Narrative Medical decision making narrative: [age] year old female who comes in for a syncopal episode most likely vasovagal in nature after having several bouts of diarrhea earlier today. Patient feeling much better during her course here in the ED after some fluid resuscitation. Electrolytes were reassuring. Patient advised to continue to hydrate well at home with some electrolytes and follow up if having any new symptoms or worsening symptoms. Discharge Plan Departure Patient Disposition: Home Clinical Impression: Syncope, vasovagal Instructions: DI for Syncope in Adults (Fainting) Activity Restrictions/Additional Instructions: Make sure you stay well hydrated with electrolytes. Do not take Ativan or benzodiazepines when having lots of diarrhea or fluid loss. Follow up if ever having worsening symptoms or new episodes. Prescriptions: No Action valacyclovir 1 gram tablet 4,000 mg PO DIRECTED simvastatin 20 mg tablet 20 mg PO ONCE PM omeprazole 20 mg capsule,delayed release(DR/EC) 20 mg PO BID fluticasone propionate 50 mcg/actuation spray,suspension 1 spray intranasal BID telmisartan [Micardis] 20 mg Tablet 20 mg PO DAILY Referrals: ProviderJacklyn [Primary Care Provider, Family Practice] Stand Alone Forms: Patient Portal/API
== END 2025-01-27 21:07 | disposition home or self-care (01) ==
PROVIDERS: Emergency Provider Family Medicine
DX: R55 Syncope and collapse (principal); I45.10 Unspecified right bundle-branch block; R19.7 Diarrhea, unspecified
CPT/HCPCS: 36415; 71045; 80053; 82550; 83690; 83735; 83880; 84484; 85025; 85610; 85730; 93005; 99283; 99284